=== PATIENT | female | born 1990 | race Caucasian/White ===

== ENCOUNTER 2017-12-28 23:38 | Emergency (ER) | payer SELFPAY ==
[2017-12-28 23:55] VITALS: BP 115/79; PULSE 61; RESP 14; TEMP 97.8; O2SAT 98
--- NOTE | 2017-12-29 00:13 | C.PDOC ---
History Of Present Illness 27 year old female presents to the ED c/o generalized itching that started yesterday. Patient states she has not bee exposed to new foods, medications, detergents or other known allergens. Patient denies fever, chills, SOB, lip swelling, tongue swelling, difficulty swallowing, SOB, recent travel. Time Seen by Provider: 12/28/17 23:57 Chief Complaint (Nursing): Abnormal Skin Integrity History Per: Patient History/Exam Limitations: no limitations Onset/Duration Of Symptoms: Days Current Symptoms Are (Timing): Still Present Location Of Injury: Right: Chest, Neck, Left: Chest, Neck Quality Of Symptoms: Itching Recent travel outside of the [place]: No Additional History Per: Patient Past Medical History Reviewed: Historical Data, Nursing Documentation, Vital Signs Vital Signs: Last Vital Signs Temp 97.8 F 12/28/17 23:53 Pulse 61 12/28/17 23:53 Resp 14 12/28/17 23:53 BP 115/79 12/28/17 23:53 Pulse Ox 98 12/28/17 23:53 - Medical History PMH: No Chronic Diseases Surgical History: No Surg Hx Family History: States: Unknown Family Hx - Social History Hx Alcohol Use: No Hx Substance Use: No - Immunization History Hx Tetanus Toxoid Vaccination: No Hx Influenza Vaccination: No Hx Pneumococcal Vaccination: No Review Of Systems Constitutional: Negative for: Fever, Chills ENT: Negative for: Mouth Swelling, Throat Swelling Cardiovascular: Negative for: Chest Pain Respiratory: Negative for: Cough, Shortness of Breath Gastrointestinal: Negative for: Nausea, Vomiting Skin: Positive for: Rash Neurological: Negative for: Headache, Dizziness Physical Exam - Physical Exam Appears: Non-toxic, No Acute Distress Skin: Warm, Dry, Other (hives neck nad upper chest) Head: Atraumatic, Normacephalic Eye(s): bilateral: Normal Inspection Oral Mucosa: Moist Tongue: No Swelling Lips: No Swelling Throat: Normal, No Erythema, No Exudate Neck: Normal ROM, Supple Chest: Symmetrical Cardiovascular: Rhythm Regular Respiratory: Normal Breath Sounds, No Rales, No Rhonchi, No Wheezing Gastrointestinal/Abdominal: Soft, No Tenderness, No Guarding, No Rebound Extremity: Bilateral: Atraumatic, Normal Color And Temperature, Normal ROM Neurological/Psych: Oriented x3, Normal Speech, Normal Cognition Gait: Steady ED Course And Treatment O2 Sat by Pulse Oximetry: 98 (ON RA) Pulse Ox Interpretation: Normal Medical Decision Making Medical Decision Making: Plan: * Benadryl 50 mg PO * Prednisone 60 mg PO Disposition Counseled Patient/Family Regarding: Diagnosis, Need For Followup, Rx Given - Disposition Referrals: [facility] [Outside] [facility] [Outside] Disposition: HOME/ ROUTINE Disposition Time: 00:25 Condition: IMPROVED Prescriptions: DiphenhydrAMINE [Benadryl] 50 mg PO TID PRN #30 cap PRN Reason: Itching / Pruritus predniSONE [Prednisone] 60 mg PO DAILY #6 tab Instructions: Hives (DC) Forms: [employer] (Urdu) - Clinical Impression Clinical Impression: Allergic urticaria - Scribe Statement The provider has reviewed the documentation as recorded by the Scribe Cristian Guerrier All medical record entries made by the Scribe were at my direction and personally dictated by me. I have reviewed the chart and agree that the record accurately reflects my personal performance of the history, physical exam, medical decision making, and the department course for this patient. I have also personally directed, reviewed, and agree with the discharge instructions and disposition.
== END 2017-12-29 00:45 | disposition home or self-care (01) ==
LOC: C.ER 23:38
DX: L50.0 Allergic urticaria (principal)

== ENCOUNTER 2018-01-03 21:06 | Emergency (ER) | payer SELFPAY ==
[2018-01-03 21:19] VITALS: BP 117/77; PULSE 80; RESP 18; TEMP 98.8; O2SAT 100
[2018-01-03] MEDS ORDERED: Dexamethasone 4 mg/1 ml IM STA (21:37)
--- NOTE | 2018-01-03 21:46 | C.PDOC ---
History Of Present Illness 27 year old female presents to the ED c/o diffuse urticarial rash. Patient was seen in the ED 5 days ago, patient was given treatment for hives at that time. However patient reports rash has not improved with medications. Patient denies fever, chills, tongue swelling, lip swelling, SOB, wheezing, nausea, vomit, weakness, numbness. Time Seen by Provider: 01/03/18 21:31 Chief Complaint (Nursing): Allergic Reaction History Per: Patient History/Exam Limitations: no limitations Onset/Duration Of Symptoms: Days (5) Current Symptoms Are (Timing): Still Present Possible Cause: Unknown Associated Symptoms: Skin Rash Home/EMS Treatment: Benadryl, Steroids Recent travel outside of the [place]: No Additional History Per: Patient Past Medical History Reviewed: Historical Data, Nursing Documentation, Vital Signs Vital Signs: Last Vital Signs Temp 98.8 F 01/03/18 21:14 Pulse 80 01/03/18 21:14 Resp 18 01/03/18 21:14 BP 117/77 01/03/18 21:14 Pulse Ox 100 01/03/18 21:14 - Medical History PMH: No Chronic Diseases Surgical History: No Surg Hx Family History: States: Unknown Family Hx - Social History Hx Alcohol Use: No Hx Substance Use: No - Immunization History Hx Tetanus Toxoid Vaccination: No Hx Influenza Vaccination: No Hx Pneumococcal Vaccination: No Review Of Systems Constitutional: Negative for: Fever, Chills ENT: Negative for: Mouth Swelling, Throat Swelling Respiratory: Negative for: Cough, Shortness of Breath, Wheezing Gastrointestinal: Negative for: Nausea, Vomiting, Abdominal Pain Skin: Positive for: Rash Neurological: Negative for: Weakness, Numbness Physical Exam - Physical Exam Appears: Non-toxic, No Acute Distress Skin: Warm, Dry, Rash (diffuse erythematous urticarial rash to chest , neck and upper arms) Head: Atraumatic, Normacephalic Eye(s): bilateral: Normal Inspection Oral Mucosa: Moist Tongue: No Swelling Lips: No Swelling Throat: Normal, No Erythema, No Exudate Neck: Normal ROM, Supple Chest: Symmetrical Cardiovascular: Rhythm Regular Respiratory: Normal Breath Sounds, No Rales, No Rhonchi, No Wheezing Extremity: Normal ROM, No Tenderness, No Swelling Neurological/Psych: Oriented x3, Normal Speech, Normal Cognition Gait: Steady ED Course And Treatment O2 Sat by Pulse Oximetry: 100 (ON RA) Pulse Ox Interpretation: Normal Progress Note: Plan: - Decadron 10 mg IM. Patient was given Prednisone for only 2 days not other steroids have been takne in the past 4 days. Patient took Benadryl 2hrs [employer]. Patient was given decadron IM and advised to use other antihistamine medications and to follw up with clinic or PMD. Disposition - Disposition Referrals: [facility] [Outside] Disposition: HOME/ ROUTINE Disposition Time: 21:44 Condition: STABLE Additional Instructions: Continue benadryl- if drowsy take at night time Take zyrtec 10 mg daily Follow up in clinic Return to ER if worse Prescriptions: Cetirizine HCl [Zyrtec] 10 mg PO DAILY #20 capsule predniSONE [Prednisone] 40 mg PO DAILY #6 tab Instructions: Alisones (DC) Forms: [employer] (Estonian) - Clinical Impression Clinical Impression: Allergic urticaria - PA / CLERICAL DENTIST ASSISTANT / Resident Statement MD/DO has reviewed & agrees with the documentation as recorded. - Scribe Statement The provider has reviewed the documentation as recorded by the Scribe Cristian Guerrier All medical record entries made by the Scribe were at my direction and personally dictated by me. I have reviewed the chart and agree that the record accurately reflects my personal performance of the history, physical exam, medical decision making, and the department course for this patient. I have also personally directed, reviewed, and agree with the discharge instructions and disposition.
== END 2018-01-03 21:57 | disposition home or self-care (01) ==
LOC: SUPCPDRO 21:06 → C.ER 21:06
DX: L50.0 Allergic urticaria (principal)
CPT/HCPCS: 96372; 99283; J1100